=== PATIENT | male | born 1970 | race Caucasian/White ===

== ENCOUNTER 2018-07-27 08:31 | Outpatient (RCR) | payer BC, SELFPAY ==
[2018-07-27] MEDS: Normal Saline Flush 10 ML SYR IVP (07:55)
[2018-07-27 09:18] LABS: Abs Immature Grans 0.01 k/cumm (0.0-0.09); Absolute Basophil Count 0.03 k/cumm (0.0-0.2); Absolute Eosinophil Count 0.08 k/cumm (0.0-0.7); Absolute Monocyte Count 0.69 k/cumm (0.11-0.7); Absolute Neutrophil Count 4.94 k/cumm (1.2-6.7); Basophils % 0.4; Eosinophils % 1.2; HCT 40.1 % (40.0-50.0); HGB 13.1 g/dL (13.5-17.5); Immature Grans % 0.1; Lymphocytes % 16.1; Mean Corp. HGB Concentration 32.7 g/dL (32.0-36.0); Mean Corpuscular Hemoglobin 30.3 pg (27.0-33.0); Mean Corpuscular Volume 92.8 fL (80-95); Mean Platelet Volume 8.9 fL (8.0-11.0); Monocytes % 10.1; Neutrophils % 72.1; Platelet Count 312 x1000/uL (130-400); RBC 4.32 m/cumm (4.50-6.00); RBC Distribution Width 12.2 % (11.8-14.1); White Blood Cell Count 6.85 k/cumm (4.4-10.8)
[2018-07-27 09:46] LABS: ALT 45 U/L (12-78); AST 30 U/L (15-37); Albumin 3.1 g/dL (3.4-5.0); Alkaline Phosphatase 153 U/L (46-116); BUN 8 mg/dL (7-18); Bilirubin, Total 0.1 mg/dL (0.2-1.0); CREATININE 0.71 mg/dL (0.70-1.30); Calcium 8.9 mg/dL (8.5-10.1); Chloride 103 mmol/L (98-107); Glucose 84 mg/dL (70-100); Potassium 4.1 mmol/L (3.5-5.1); Sodium 141 mmol/L (136-145); Total Protein 7.6 g/dL (6.4-8.2)
[2018-07-29 12:45] LABS: CA 19-9 4 U/mL (<35)
== END 2018-08-02 23:59 | disposition home or self-care (01) ==
LOC: INF 08:31
PROVIDERS: Visit Provider Internal Medicine Hematology & Oncology
DX: C25.9 Malignant neoplasm of pancreas, unspecified (principal); C78.7 Secondary malignant neoplasm of liver and intrahepatic bile duct; Z45.2 Encounter for adjustment and management of vascular access device
CPT/HCPCS: 36591; 80053; 85025; 86301

== ENCOUNTER 2018-08-21 02:31 | Outpatient (RCR) | payer BC, SELFPAY ==
[2018-08-07] MEDS: Heparin 500 UNITS/5 ML SYRINGE IV (13:30)
[2018-08-07] MEDS: Normal Saline Flush 10 ML SYR IVP (13:35)
[2018-08-07 14:24] LABS: Absolute Basophil Count 0.02 k/cumm (0.0-0.2); Absolute Eosinophil Count 0.16 k/cumm (0.0-0.7); Absolute Lymphocyte Count 1.34 k/cumm (1.2-3.4); Absolute Monocyte Count 0.46 k/cumm (0.11-0.7); Absolute Neutrophil Count 1.38 k/cumm (1.2-6.7); Basophils % 0.6; Eosinophils % 4.8; HCT 40.4 % (40.0-50.0); HGB 13.5 g/dL (13.5-17.5); Lymphocytes % 39.9; Mean Corp. HGB Concentration 33.4 g/dL (32.0-36.0); Mean Corpuscular Hemoglobin 30.6 pg (27.0-33.0); Mean Corpuscular Volume 91.6 fL (80-95); Mean Platelet Volume 8.6 fL (8.0-11.0); Monocytes % 13.7; Platelet Count 319 x1000/uL (130-400); RBC 4.41 m/cumm (4.50-6.00); RBC Distribution Width 12.7 % (11.8-14.1); White Blood Cell Count 3.36 k/cumm (4.4-10.8)
[2018-08-07 14:40] LABS: ALT 31 U/L (12-78); AST 18 U/L (15-37); Albumin 3.4 g/dL (3.4-5.0); Alkaline Phosphatase 125 U/L (46-116); Anion Gap 7.2 mmol/L (3-11); BUN 16 mg/dL (7-18); Bilirubin, Total 0.2 mg/dL (0.2-1.0); CO2 29.8 mmol/L (21.0-32.0); CREATININE 0.87 mg/dL (0.70-1.30); Calcium 9.2 mg/dL (8.5-10.1); Chloride 101 mmol/L (98-107); Glucose 88 mg/dL (70-100); Sodium 138 mmol/L (136-145); Total Protein 7.6 g/dL (6.4-8.2)
[2018-08-10 11:06] LABS: CEA 120.5 ng/ml
[2018-08-21] MEDS: Heparin 500 UNITS/5 ML SYRINGE IV (10:40)
[2018-08-21] MEDS: Normal Saline Flush 10 ML SYR IVP (10:40)
[2018-08-21 11:04] LABS: Absolute Basophil Count 0.02 k/cumm (0.0-0.2); Absolute Eosinophil Count 0.09 k/cumm (0.0-0.7); Absolute Lymphocyte Count 1.19 k/cumm (1.2-3.4); Absolute Monocyte Count 0.51 k/cumm (0.11-0.7); Absolute Neutrophil Count 1.13 k/cumm (1.2-6.7); Basophils % 0.7; Eosinophils % 3.1; HCT 39.4 % (40.0-50.0); HGB 13.5 g/dL (13.5-17.5); Lymphocytes % 40.5; Mean Corp. HGB Concentration 34.3 g/dL (32.0-36.0); Mean Corpuscular Hemoglobin 31.3 pg (27.0-33.0); Mean Corpuscular Volume 91.4 fL (80-95); Mean Platelet Volume 8.8 fL (8.0-11.0); Monocytes % 17.3; Neutrophils % 38.4; RBC 4.31 m/cumm (4.50-6.00); White Blood Cell Count 2.94 k/cumm (4.4-10.8)
[2018-08-21 11:22] LABS: ALT 33 U/L (12-78); AST 14 U/L (15-37); Albumin 3.5 g/dL (3.4-5.0); Alkaline Phosphatase 85 U/L (46-116); Anion Gap 8.8 mmol/L (3-11); BUN 13 mg/dL (7-18); Bilirubin, Total 0.2 mg/dL (0.2-1.0); CO2 27.2 mmol/L (21.0-32.0); CREATININE 0.88 mg/dL (0.70-1.30); Calcium 8.9 mg/dL (8.5-10.1); Chloride 105 mmol/L (98-107); Glucose 98 mg/dL (70-100); Potassium 4.2 mmol/L (3.5-5.1); Sodium 141 mmol/L (136-145); Total Protein 6.9 g/dL (6.4-8.2)
[2018-08-21 11:37] LABS: Diff Comment Agrees w/ Instrument; Platelet Count 173 x1000/uL (130-400)
[2018-08-21 11:38] LABS: RBC Morphology Normal
[2018-08-24 10:14] LABS: CEA 117.5 ng/ml
== END 2018-09-02 23:59 | disposition home or self-care (01) ==
LOC: INF 02:31
PROVIDERS: Visit Provider Internal Medicine Hematology & Oncology
DX: C18.9 Malignant neoplasm of colon, unspecified (principal); C78.7 Secondary malignant neoplasm of liver and intrahepatic bile duct; Z45.2 Encounter for adjustment and management of vascular access device
CPT/HCPCS: 36591; 80053; 82378; 85025

== ENCOUNTER 2018-09-25 00:51 | Outpatient (RCR) | payer BC, SELFPAY ==
[2018-09-04] MEDS: Normal Saline Flush 10 ML SYR IVP (10:35)
[2018-09-04] MEDS: Heparin 500 UNITS/5 ML SYRINGE IV (10:35)
[2018-09-04 10:49] LABS: Absolute Basophil Count 0.01 k/cumm (0.0-0.2); Absolute Eosinophil Count 0.02 k/cumm (0.0-0.7); Absolute Lymphocyte Count 1.18 k/cumm (1.2-3.4); Absolute Neutrophil Count 0.81 k/cumm (1.2-6.7); Basophils % 0.4; Eosinophils % 0.8; HCT 39.8 % (40.0-50.0); HGB 13.6 g/dL (13.5-17.5); Lymphocytes % 46.8; Mean Corp. HGB Concentration 34.2 g/dL (32.0-36.0); Mean Corpuscular Hemoglobin 31.5 pg (27.0-33.0); Mean Corpuscular Volume 92.1 fL (80-95); Mean Platelet Volume 8.3 fL (8.0-11.0); Monocytes % 19.8; Neutrophils % 32.2; Platelet Count 172 x1000/uL (130-400); RBC 4.32 m/cumm (4.50-6.00); RBC Distribution Width 15.6 % (11.8-14.1); White Blood Cell Count 2.52 k/cumm (4.4-10.8)
[2018-09-04 10:57] LABS: Bilirubin Negative (Negative); Blood Negative (Negative); Clarity Clear; Glucose Negative (Negative); Ketones Negative (Negative); Leukocyte Esterase Negative (Negative); Nitrite Negative (Negative); Specific Gravity >= 1.030 (1.005-1.025); Urobilinogen 0.2 EU/dL (Up TO 0.2); pH 5.5 (5-8)
[2018-09-04 11:02] LABS: ALT 35 U/L (12-78); AST 19 U/L (15-37); Albumin 3.6 g/dL (3.4-5.0); Alkaline Phosphatase 82 U/L (46-116); Anion Gap 8.8 mmol/L (3-11); BUN 12 mg/dL (7-18); Bilirubin, Total 0.3 mg/dL (0.2-1.0); CO2 27.2 mmol/L (21.0-32.0); CREATININE 0.87 mg/dL (0.70-1.30); Chloride 105 mmol/L (98-107); Glucose 85 mg/dL (70-100); Potassium 4.1 mmol/L (3.5-5.1); Sodium 141 mmol/L (136-145); Total Protein 7.1 g/dL (6.4-8.2)
[2018-09-04 12:15] LABS: Bacteria Negative HPF (Negative); Crystals Rare Amorphous HPF (Negative); Epithelial Cells Rare HPF (Negative); Other Cells Few Spermatozoa (Negative); RBC Negative (0-2); WBC 0-2 HPF (0-5)
[2018-09-04 12:16] LABS: C & S Indicated? No; Casts Negative LPF (Negative); Mucus Moderate (Negative)
[2018-09-07 10:11] LABS: CEA 83.8 ng/ml
[2018-09-25] MEDS: Normal Saline Flush 10 ML SYR IVP (08:30)
[2018-09-25] MEDS: Heparin 500 UNITS/5 ML SYRINGE IV (08:30)
[2018-09-25 08:39] LABS: Bilirubin Negative (Negative); Blood Negative (Negative); Clarity Clear; Glucose Negative (Negative); Ketones Negative (Negative); Leukocyte Esterase Negative (Negative); Nitrite Negative (Negative); Urobilinogen 0.2 EU/dL (Up TO 0.2); pH 5.5 (5-8)
[2018-09-25 08:43] LABS: HCT 42.3 % (40.0-50.0); HGB 14.1 g/dL (13.5-17.5); Mean Corp. HGB Concentration 33.3 g/dL (32.0-36.0); Mean Corpuscular Hemoglobin 31.1 pg (27.0-33.0); Mean Corpuscular Volume 93.2 fL (80-95); Mean Platelet Volume 8.9 fL (8.0-11.0); Platelet Count 120 x1000/uL (130-400); RBC 4.54 m/cumm (4.50-6.00); RBC Distribution Width 17.6 % (11.8-14.1); White Blood Cell Count 12.35 k/cumm (4.4-10.8)
[2018-09-25 08:56] LABS: ALT 33 U/L (12-78); AST 18 U/L (15-37); Albumin 3.9 g/dL (3.4-5.0); Alkaline Phosphatase 140 U/L (46-116); BUN 15 mg/dL (7-18); Bilirubin, Total 0.2 mg/dL (0.2-1.0); CREATININE 0.89 mg/dL (0.70-1.30); Calcium 9.5 mg/dL (8.5-10.1); Chloride 104 mmol/L (98-107); Glucose 122 mg/dL (70-100); Potassium 4.4 mmol/L (3.5-5.1); Sodium 139 mmol/L (136-145); Total Protein 7.7 g/dL (6.4-8.2)
[2018-09-25 08:58] LABS: Absolute Eosinophil Count 0.25 k/cumm (0.0-0.7); Absolute Lymphocyte Count 2.96 k/cumm (1.2-3.4); Absolute Monocyte Count 1.24 k/cumm (0.11-0.7); Anisocytosis 2+; Diff Comment Manual Differential
[2018-09-28 10:39] LABS: CEA 41.7 ng/ml
== END 2018-10-02 23:59 | disposition home or self-care (01) ==
LOC: INF 00:51
PROVIDERS: Visit Provider Internal Medicine Hematology & Oncology
DX: C18.9 Malignant neoplasm of colon, unspecified (principal); C78.7 Secondary malignant neoplasm of liver and intrahepatic bile duct; Z45.2 Encounter for adjustment and management of vascular access device
CPT/HCPCS: 36591; 80053; 81003; 81015; 82378; 85025

== ENCOUNTER 2018-10-30 01:28 | Outpatient (RCR) | payer BC, SELFPAY ==
[2018-10-09] MEDS: Normal Saline Flush 10 ML SYR IVP (09:31)
[2018-10-09] MEDS: Heparin 500 UNITS/5 ML SYRINGE IV (09:35)
[2018-10-09 09:50] LABS: Abs Immature Grans 0.28 k/cumm (0.0-0.09); HCT 40.4 % (40.0-50.0); HGB 13.7 g/dL (13.5-17.5); Mean Corp. HGB Concentration 33.9 g/dL (32.0-36.0); Mean Corpuscular Hemoglobin 31.9 pg (27.0-33.0); Mean Corpuscular Volume 94.2 fL (80-95); Mean Platelet Volume 8.8 fL (8.0-11.0); Platelet Count 198 x1000/uL (130-400); RBC 4.29 m/cumm (4.50-6.00); RBC Distribution Width 18.8 % (11.8-14.1); White Blood Cell Count 10.92 k/cumm (4.4-10.8)
[2018-10-09 09:56] LABS: Bilirubin Negative (Negative); Blood Negative (Negative); Clarity Clear; Glucose Negative (Negative); Ketones Negative (Negative); Leukocyte Esterase Negative (Negative); Nitrite Negative (Negative); Specific Gravity <= 1.005 (1.005-1.025); Urobilinogen 0.2 EU/dL (Up TO 0.2); pH 5.5 (5-8)
[2018-10-09 10:03] LABS: ALT 38 U/L (12-78); AST 20 U/L (15-37); Albumin 3.9 g/dL (3.4-5.0); Alkaline Phosphatase 165 U/L (46-116); Anion Gap 11.7 mmol/L (3-11); BUN 15 mg/dL (7-18); Bilirubin, Total 0.3 mg/dL (0.2-1.0); CO2 23.3 mmol/L (21.0-32.0); CREATININE 0.77 mg/dL (0.70-1.30); Calcium 9.3 mg/dL (8.5-10.1); Chloride 104 mmol/L (98-107); Glucose 101 mg/dL (70-100); Potassium 4.1 mmol/L (3.5-5.1); Sodium 139 mmol/L (136-145); Total Protein 7.7 g/dL (6.4-8.2)
[2018-10-09 10:17] LABS: Absolute Eosinophil Count 0.11 k/cumm (0.0-0.7); Absolute Lymphocyte Count 1.64 k/cumm (1.2-3.4); Absolute Monocyte Count 1.09 k/cumm (0.11-0.7); Absolute Neutrophil Count 7.86 k/cumm (1.2-6.7); Anisocytosis 2+; Atypical Lymphocytes % 3; Diff Comment Manual Differential; Polychromasia Present
[2018-10-12 10:22] LABS: CEA 23.9 ng/ml
== END 2018-11-02 23:59 | disposition home or self-care (01) ==
LOC: INF 01:28
PROVIDERS: Visit Provider Internal Medicine Hematology & Oncology
DX: C18.9 Malignant neoplasm of colon, unspecified (principal); C78.7 Secondary malignant neoplasm of liver and intrahepatic bile duct; Z45.2 Encounter for adjustment and management of vascular access device
CPT/HCPCS: 36415; 80053; 96523; 81003; 82378; 85025

== ENCOUNTER 2018-11-30 01:15 | Outpatient (RCR) | payer BC, SELFPAY | END 2018-12-03 23:59 | disposition home or self-care (01) | LOC: INF 01:15 | PROVIDERS: Visit Provider Internal Medicine Hematology & Oncology | DX: R69 Illness, unspecified (principal) ==

== ENCOUNTER 2018-12-21 01:50 | Outpatient (RCR) | payer BC, SELFPAY | END 2018-12-31 23:59 | disposition home or self-care (01) | LOC: INF 01:50 | PROVIDERS: Visit Provider Internal Medicine Hematology & Oncology ==

== ENCOUNTER 2019-01-15 02:04 | Outpatient (RCR) | payer BC, SELFPAY ==
[2019-01-01] MEDS: Normal Saline Flush 10 ML SYR IVP (13:02)
[2019-01-01] MEDS: Heparin 500 UNITS/5 ML SYRINGE IV (13:02)
[2019-01-01 13:13] LABS: Absolute Basophil Count 0.03 k/cumm (0.0-0.2); Absolute Eosinophil Count 0.12 k/cumm (0.0-0.7); Absolute Lymphocyte Count 1.19 k/cumm (1.2-3.4); Absolute Monocyte Count 0.67 k/cumm (0.11-0.7); Absolute Neutrophil Count 2.81 k/cumm (1.2-6.7); Basophils % 0.6; Eosinophils % 2.5; HCT 38.9 % (40.0-50.0); HGB 12.7 g/dL (13.5-17.5); Lymphocytes % 24.7; Mean Corp. HGB Concentration 32.6 g/dL (32.0-36.0); Mean Corpuscular Hemoglobin 32.6 pg (27.0-33.0); Mean Corpuscular Volume 99.7 fL (80-95); Mean Platelet Volume 8.6 fL (8.0-11.0); Monocytes % 13.9; Neutrophils % 58.3; Platelet Count 279 x1000/uL (130-400); RBC Distribution Width 13.1 % (11.8-14.1); White Blood Cell Count 4.82 k/cumm (4.4-10.8)
[2019-01-01 13:36] LABS: ALT 27 U/L (12-78); AST 22 U/L (15-37); Albumin 3.6 g/dL (3.4-5.0); Alkaline Phosphatase 102 U/L (46-116); Anion Gap 7.8 mmol/L (3-11); BUN 13 mg/dL (7-18); Bilirubin, Total 0.3 mg/dL (0.2-1.0); CO2 29.2 mmol/L (21.0-32.0); CREATININE 0.75 mg/dL (0.70-1.30); Calcium 9.4 mg/dL (8.5-10.1); Chloride 101 mmol/L (98-107); Glucose 94 mg/dL (70-100); Potassium 3.8 mmol/L (3.5-5.1); Sodium 138 mmol/L (136-145); Total Protein 8.1 g/dL (6.4-8.2)
[2019-01-15] MEDS: Normal Saline Flush 10 ML SYR IVP (11:33)
[2019-01-15] MEDS: Heparin 500 UNITS/5 ML SYRINGE IV (11:33)
[2019-01-15 11:43] LABS: Abs Immature Grans 0.01 k/cumm (0.0-0.09); Absolute Basophil Count 0.02 k/cumm (0.0-0.2); Absolute Eosinophil Count 0.12 k/cumm (0.0-0.7); Absolute Lymphocyte Count 1.19 k/cumm (1.2-3.4); Absolute Monocyte Count 0.48 k/cumm (0.11-0.7); Absolute Neutrophil Count 1.69 k/cumm (1.2-6.7); Basophils % 0.6; Eosinophils % 3.4; HCT 40.5 % (40.0-50.0); HGB 13.7 g/dL (13.5-17.5); Immature Grans % 0.3; Lymphocytes % 33.9; Mean Corp. HGB Concentration 33.8 g/dL (32.0-36.0); Mean Corpuscular Hemoglobin 33.3 pg (27.0-33.0); Mean Corpuscular Volume 98.5 fL (80-95); Mean Platelet Volume 8.9 fL (8.0-11.0); Monocytes % 13.7; Neutrophils % 48.1; RBC 4.11 m/cumm (4.50-6.00); RBC Distribution Width 13.5 % (11.8-14.1); White Blood Cell Count 3.51 k/cumm (4.4-10.8)
[2019-01-15 11:55] LABS: ALT 26 U/L (12-78); AST 18 U/L (15-37); Albumin 3.8 g/dL (3.4-5.0); Alkaline Phosphatase 79 U/L (46-116); Anion Gap 9.7 mmol/L (3-11); BUN 9 mg/dL (7-18); Bilirubin, Total 0.5 mg/dL (0.2-1.0); CO2 26.3 mmol/L (21.0-32.0); CREATININE 0.86 mg/dL (0.70-1.30); Calcium 9.1 mg/dL (8.5-10.1); Chloride 103 mmol/L (98-107); Glucose 96 mg/dL (70-100); Potassium 3.9 mmol/L (3.5-5.1); Sodium 139 mmol/L (136-145); Total Protein 7.6 g/dL (6.4-8.2)
[2019-01-15 11:56] LABS: Diff Comment PLT Morph Reviewed; Platelet Count 123 x1000/uL (130-400); RBC Morphology Normal
== END 2019-01-31 23:59 | disposition home or self-care (01) ==
LOC: INF 02:04
PROVIDERS: Visit Provider Internal Medicine Hematology & Oncology
DX: C18.9 Malignant neoplasm of colon, unspecified (principal); C78.7 Secondary malignant neoplasm of liver and intrahepatic bile duct; Z45.2 Encounter for adjustment and management of vascular access device
CPT/HCPCS: 36591; 80053; 82378; 85025

== ENCOUNTER 2019-02-19 00:52 | Outpatient (RCR) | payer BC, SELFPAY ==
[2019-02-05] MEDS: Heparin 500 UNITS/5 ML SYRINGE IV (13:25)
[2019-02-05] MEDS: Normal Saline Flush 10 ML SYR IVP (13:25)
[2019-02-05 14:05] LABS: Abs Immature Grans 0.01 k/cumm (0.0-0.09); Absolute Basophil Count 0.02 k/cumm (0.0-0.2); Absolute Eosinophil Count 0.09 k/cumm (0.0-0.7); Absolute Lymphocyte Count 1.15 k/cumm (1.2-3.4); Absolute Monocyte Count 0.44 k/cumm (0.11-0.7); Absolute Neutrophil Count 2.14 k/cumm (1.2-6.7); Basophils % 0.5; Eosinophils % 2.3; HCT 41.8 % (40.0-50.0); HGB 13.8 g/dL (13.5-17.5); Immature Grans % 0.3; Lymphocytes % 29.9; Mean Corpuscular Hemoglobin 31.9 pg (27.0-33.0); Mean Corpuscular Volume 96.8 fL (80-95); Mean Platelet Volume 8.8 fL (8.0-11.0); Monocytes % 11.4; Neutrophils % 55.6; Platelet Count 163 x1000/uL (130-400); RBC 4.32 m/cumm (4.50-6.00); RBC Distribution Width 13.6 % (11.8-14.1); White Blood Cell Count 3.85 k/cumm (4.4-10.8)
[2019-02-05 14:18] LABS: ALT 33 U/L (12-78); AST 20 U/L (15-37); Albumin 3.8 g/dL (3.4-5.0); Alkaline Phosphatase 77 U/L (46-116); Anion Gap 9.7 mmol/L (3-11); BUN 17 mg/dL (7-18); Bilirubin, Total 0.3 mg/dL (0.2-1.0); CO2 27.3 mmol/L (21.0-32.0); CREATININE 1.04 mg/dL (0.70-1.30); Calcium 9.1 mg/dL (8.5-10.1); Chloride 103 mmol/L (98-107); Glucose 111 mg/dL (70-100); Potassium 4.2 mmol/L (3.5-5.1); Sodium 140 mmol/L (136-145); Total Protein 7.6 g/dL (6.4-8.2)
[2019-02-08 09:50] LABS: CEA 7.2 ng/ml
[2019-02-19] MEDS: Heparin 500 UNITS/5 ML SYRINGE IV (08:40)
[2019-02-19 09:09] LABS: Abs Immature Grans 0.01 k/cumm (0.0-0.09); Absolute Basophil Count 0.02 k/cumm (0.0-0.2); Absolute Eosinophil Count 0.14 k/cumm (0.0-0.7); Absolute Lymphocyte Count 1.48 k/cumm (1.2-3.4); Absolute Monocyte Count 0.62 k/cumm (0.11-0.7); Absolute Neutrophil Count 1.86 k/cumm (1.2-6.7); Basophils % 0.5; Eosinophils % 3.4; HCT 43.2 % (40.0-50.0); HGB 14.4 g/dL (13.5-17.5); Immature Grans % 0.2; Lymphocytes % 35.8; Mean Corp. HGB Concentration 33.3 g/dL (32.0-36.0); Mean Corpuscular Hemoglobin 32.4 pg (27.0-33.0); Mean Corpuscular Volume 97.1 fL (80-95); Mean Platelet Volume 8.8 fL (8.0-11.0); Neutrophils % 45.1; Platelet Count 168 x1000/uL (130-400); RBC 4.45 m/cumm (4.50-6.00); RBC Distribution Width 14.4 % (11.8-14.1); White Blood Cell Count 4.13 k/cumm (4.4-10.8)
[2019-02-19 09:22] LABS: ALT 38 U/L (12-78); AST 16 U/L (15-37); Albumin 3.8 g/dL (3.4-5.0); Alkaline Phosphatase 75 U/L (46-116); Anion Gap 9.9 mmol/L (3-11); BUN 16 mg/dL (7-18); Bilirubin, Total 0.3 mg/dL (0.2-1.0); CO2 25.1 mmol/L (21.0-32.0); CREATININE 1.03 mg/dL (0.70-1.30); Calcium 8.9 mg/dL (8.5-10.1); Chloride 103 mmol/L (98-107); Glucose 107 mg/dL (70-100); Potassium 4.2 mmol/L (3.5-5.1); Sodium 138 mmol/L (136-145); Total Protein 7.5 g/dL (6.4-8.2)
[2019-02-19] MEDS: Normal Saline Flush 10 ML SYR IVP (09:45)
[2019-02-22 11:00] LABS: CEA 7.8 ng/ml
== END 2019-03-02 23:59 | disposition home or self-care (01) ==
LOC: INF 00:52
PROVIDERS: Visit Provider Internal Medicine Hematology & Oncology
DX: C18.9 Malignant neoplasm of colon, unspecified (principal); C78.7 Secondary malignant neoplasm of liver and intrahepatic bile duct; Z45.2 Encounter for adjustment and management of vascular access device
CPT/HCPCS: 36415; 36591; 80053; 96523; 82378; 85025

== ENCOUNTER 2019-04-02 01:41 | Outpatient (RCR) | payer BC, SELFPAY ==
[2019-03-05] MEDS: Normal Saline Flush 10 ML SYR IVP (07:45)
[2019-03-05] MEDS: Heparin 500 UNITS/5 ML SYRINGE IV (07:45)
[2019-03-05 08:05] LABS: Absolute Basophil Count 0.03 k/cumm (0.0-0.2); Absolute Eosinophil Count 0.14 k/cumm (0.0-0.7); Absolute Lymphocyte Count 1.27 k/cumm (1.2-3.4); Absolute Monocyte Count 0.55 k/cumm (0.11-0.7); Absolute Neutrophil Count 1.44 k/cumm (1.2-6.7); Basophils % 0.9; Eosinophils % 4.1; HCT 43.2 % (40.0-50.0); HGB 14.4 g/dL (13.5-17.5); Mean Corp. HGB Concentration 33.3 g/dL (32.0-36.0); Mean Corpuscular Hemoglobin 32.3 pg (27.0-33.0); Mean Corpuscular Volume 96.9 fL (80-95); Mean Platelet Volume 8.8 fL (8.0-11.0); Platelet Count 186 x1000/uL (130-400); RBC 4.46 m/cumm (4.50-6.00); White Blood Cell Count 3.43 k/cumm (4.4-10.8)
[2019-03-05 08:17] LABS: ALT 35 U/L (12-78); AST 17 U/L (15-37); Albumin 3.8 g/dL (3.4-5.0); Alkaline Phosphatase 63 U/L (46-116); Anion Gap 8.8 mmol/L (3-11); BUN 14 mg/dL (7-18); Bilirubin, Total 0.3 mg/dL (0.2-1.0); CO2 25.2 mmol/L (21.0-32.0); CREATININE 1.21 mg/dL (0.70-1.30); Calcium 8.9 mg/dL (8.5-10.1); Chloride 102 mmol/L (98-107); Glucose 132 mg/dL (70-100); Potassium 4.2 mmol/L (3.5-5.1); Sodium 136 mmol/L (136-145); Total Protein 7.5 g/dL (6.4-8.2)
[2019-03-08 12:17] LABS: CEA 9.7 ng/ml
[2019-03-19] MEDS: Normal Saline Flush 10 ML SYR IVP (13:28)
[2019-03-19] MEDS: Heparin 500 UNITS/5 ML SYRINGE IV (13:28)
[2019-03-19 13:36] LABS: Abs Immature Grans 0.01 k/cumm (0.0-0.09); Absolute Basophil Count 0.03 k/cumm (0.0-0.2); Absolute Eosinophil Count 0.15 k/cumm (0.0-0.7); Absolute Lymphocyte Count 1.25 k/cumm (1.2-3.4); Absolute Monocyte Count 0.44 k/cumm (0.11-0.7); Absolute Neutrophil Count 1.84 k/cumm (1.2-6.7); Basophils % 0.8; HCT 37.7 % (40.0-50.0); HGB 13.1 g/dL (13.5-17.5); Immature Grans % 0.3; Lymphocytes % 33.6; Mean Corp. HGB Concentration 34.7 g/dL (32.0-36.0); Mean Corpuscular Hemoglobin 33.3 pg (27.0-33.0); Mean Corpuscular Volume 95.9 fL (80-95); Mean Platelet Volume 8.5 fL (8.0-11.0); Monocytes % 11.8; Neutrophils % 49.5; Platelet Count 156 x1000/uL (130-400); RBC 3.93 m/cumm (4.50-6.00); RBC Distribution Width 15.1 % (11.8-14.1); White Blood Cell Count 3.72 k/cumm (4.4-10.8)
[2019-03-19 13:52] LABS: ALT 30 U/L (12-78); AST 15 U/L (15-37); Albumin 3.6 g/dL (3.4-5.0); Alkaline Phosphatase 68 U/L (46-116); Anion Gap 10.3 mmol/L (3-11); BUN 17 mg/dL (7-18); Bilirubin, Total 0.3 mg/dL (0.2-1.0); CO2 24.7 mmol/L (21.0-32.0); CREATININE 1.08 mg/dL (0.70-1.30); Chloride 104 mmol/L (98-107); Glucose 103 mg/dL (70-100); Potassium 4.1 mmol/L (3.5-5.1); Sodium 139 mmol/L (136-145); Total Protein 7.2 g/dL (6.4-8.2)
[2019-03-19 14:00] LABS: Calcium 9.1 mg/dL (8.5-10.1)
[2019-03-22 09:32] LABS: CEA 9.9 ng/ml
[2019-04-02] MEDS: Normal Saline Flush 10 ML SYR IVP (14:18)
[2019-04-02] MEDS: Heparin 500 UNITS/5 ML SYRINGE IV (14:31)
[2019-04-02 14:33] LABS: Abs Immature Grans 0.01 k/cumm (0.0-0.09); Absolute Basophil Count 0.03 k/cumm (0.0-0.2); Absolute Eosinophil Count 0.17 k/cumm (0.0-0.7); Absolute Monocyte Count 0.53 k/cumm (0.11-0.7); Basophils % 0.8; Eosinophils % 4.4; HGB 13.4 g/dL (13.5-17.5); Immature Grans % 0.3; Lymphocytes % 28.6; Mean Corp. HGB Concentration 34.4 g/dL (32.0-36.0); Mean Corpuscular Hemoglobin 33.1 pg (27.0-33.0); Mean Corpuscular Volume 96.3 fL (80-95); Mean Platelet Volume 8.8 fL (8.0-11.0); Monocytes % 13.8; Neutrophils % 52.1; Platelet Count 173 x1000/uL (130-400); RBC 4.05 m/cumm (4.50-6.00); White Blood Cell Count 3.84 k/cumm (4.4-10.8)
[2019-04-02 14:42] LABS: ALT 27 U/L (12-78); AST 14 U/L (15-37); Albumin 3.6 g/dL (3.4-5.0); Alkaline Phosphatase 61 U/L (46-116); Anion Gap 5.7 mmol/L (3-11); BUN 14 mg/dL (7-18); Bilirubin, Total 0.3 mg/dL (0.2-1.0); CO2 27.3 mmol/L (21.0-32.0); CREATININE 0.94 mg/dL (0.70-1.30); Calcium 8.8 mg/dL (8.5-10.1); Chloride 105 mmol/L (98-107); Glucose 105 mg/dL (70-100); Potassium 3.8 mmol/L (3.5-5.1); Sodium 138 mmol/L (136-145)
[2019-04-05 10:13] LABS: CEA 10.5 ng/ml
== END 2019-04-02 23:59 | disposition home or self-care (01) ==
LOC: INF 01:41
PROVIDERS: Visit Provider Internal Medicine Hematology & Oncology
DX: C18.9 Malignant neoplasm of colon, unspecified (principal); C78.7 Secondary malignant neoplasm of liver and intrahepatic bile duct; Z45.2 Encounter for adjustment and management of vascular access device
CPT/HCPCS: 36591; 80053; 82378; 85025

== ENCOUNTER 2019-04-19 02:04 | Outpatient (RCR) | payer BC, SELFPAY ==
[2019-04-19] MEDS: Normal Saline Flush 10 ML SYR IVP (08:59)
[2019-04-19 09:10] LABS: Abs Immature Grans 0.01 k/cumm (0.0-0.09); Absolute Basophil Count 0.03 k/cumm (0.0-0.2); Absolute Eosinophil Count 0.18 k/cumm (0.0-0.7); Absolute Lymphocyte Count 1.02 k/cumm (1.2-3.4); Absolute Monocyte Count 0.43 k/cumm (0.11-0.7); Absolute Neutrophil Count 2.23 k/cumm (1.2-6.7); Basophils % 0.8; Eosinophils % 4.6; HCT 39.9 % (40.0-50.0); HGB 13.8 g/dL (13.5-17.5); Immature Grans % 0.3; Lymphocytes % 26.2; Mean Corp. HGB Concentration 34.6 g/dL (32.0-36.0); Mean Corpuscular Hemoglobin 33.6 pg (27.0-33.0); Mean Corpuscular Volume 97.1 fL (80-95); Mean Platelet Volume 8.6 fL (8.0-11.0); Neutrophils % 57.1; Platelet Count 165 x1000/uL (130-400); RBC 4.11 m/cumm (4.50-6.00); RBC Distribution Width 15.9 % (11.8-14.1)
[2019-04-19 09:30] LABS: ALT 29 U/L (12-78); AST 16 U/L (15-37); Albumin 3.9 g/dL (3.4-5.0); Alkaline Phosphatase 72 U/L (46-116); Anion Gap 9.8 mmol/L (3-11); BUN 16 mg/dL (7-18); Bilirubin, Total 0.4 mg/dL (0.2-1.0); CO2 26.2 mmol/L (21.0-32.0); CREATININE 0.94 mg/dL (0.70-1.30); Calcium 9.5 mg/dL (8.5-10.1); Chloride 105 mmol/L (98-107); Glucose 105 mg/dL (70-100); Potassium 4.2 mmol/L (3.5-5.1); Sodium 141 mmol/L (136-145); Total Protein 7.3 g/dL (6.4-8.2)
[2019-04-20 12:37] LABS: CEA 11.6 ng/ml
== END 2019-05-02 23:59 | disposition home or self-care (01) ==
LOC: INF 02:04
PROVIDERS: Visit Provider Internal Medicine Hematology & Oncology
DX: C18.9 Malignant neoplasm of colon, unspecified (principal); C78.7 Secondary malignant neoplasm of liver and intrahepatic bile duct; Z45.2 Encounter for adjustment and management of vascular access device
CPT/HCPCS: 36591; 80053; 82378; 85025

== ENCOUNTER 2019-05-31 00:59 | Outpatient (RCR) | payer BC, SELFPAY ==
[2019-05-03] MEDS: Normal Saline Flush 10 ML SYR IVP (08:40)
[2019-05-03 08:43] LABS: Absolute Basophil Count 0.02 k/cumm (0.0-0.2); Absolute Eosinophil Count 0.16 k/cumm (0.0-0.7); Absolute Lymphocyte Count 1.21 k/cumm (1.2-3.4); Absolute Monocyte Count 0.53 k/cumm (0.11-0.7); Absolute Neutrophil Count 3.36 k/cumm (1.2-6.7); Basophils % 0.4; HCT 39.9 % (40.0-50.0); HGB 13.8 g/dL (13.5-17.5); Lymphocytes % 22.9; Mean Corp. HGB Concentration 34.6 g/dL (32.0-36.0); Mean Corpuscular Hemoglobin 33.7 pg (27.0-33.0); Mean Corpuscular Volume 97.6 fL (80-95); Mean Platelet Volume 8.5 fL (8.0-11.0); Neutrophils % 63.7; Platelet Count 158 x1000/uL (130-400); RBC 4.09 m/cumm (4.50-6.00); RBC Distribution Width 15.5 % (11.8-14.1); White Blood Cell Count 5.28 k/cumm (4.4-10.8)
[2019-05-03 09:35] LABS: ALT 28 U/L (12-78); AST 17 U/L (15-37); Albumin 3.7 g/dL (3.4-5.0); Alkaline Phosphatase 72 U/L (46-116); Anion Gap 10.9 mmol/L (3-11); BUN 10 mg/dL (7-18); Bilirubin, Total 0.4 mg/dL (0.2-1.0); CO2 26.1 mmol/L (21.0-32.0); CREATININE 0.95 mg/dL (0.70-1.30); Calcium 8.9 mg/dL (8.5-10.1); Chloride 105 mmol/L (98-107); Glucose 98 mg/dL (70-100); Potassium 4.1 mmol/L (3.5-5.1); Sodium 142 mmol/L (136-145); Total Protein 7.2 g/dL (6.4-8.2)
[2019-05-04 09:30] LABS: CEA 13.9 ng/ml
[2019-05-14] MEDS: Normal Saline Flush 10 ML SYR IVP (12:29)
[2019-05-14] MEDS: Heparin 500 UNITS/5 ML SYRINGE IV (12:29)
[2019-05-14 12:56] LABS: Abs Immature Grans 0.02 k/cumm (0.0-0.09); Absolute Basophil Count 0.02 k/cumm (0.0-0.2); Absolute Eosinophil Count 0.16 k/cumm (0.0-0.7); Absolute Lymphocyte Count 1.12 k/cumm (1.2-3.4); Absolute Monocyte Count 0.56 k/cumm (0.11-0.7); Absolute Neutrophil Count 1.79 k/cumm (1.2-6.7); Basophils % 0.5; Eosinophils % 4.4; HCT 38.4 % (40.0-50.0); Immature Grans % 0.5; Lymphocytes % 30.5; Mean Corp. HGB Concentration 33.9 g/dL (32.0-36.0); Mean Corpuscular Hemoglobin 33.6 pg (27.0-33.0); Mean Corpuscular Volume 99.2 fL (80-95); Mean Platelet Volume 8.8 fL (8.0-11.0); Monocytes % 15.3; Neutrophils % 48.8; Platelet Count 205 x1000/uL (130-400); RBC 3.87 m/cumm (4.50-6.00); RBC Distribution Width 15.2 % (11.8-14.1); White Blood Cell Count 3.67 k/cumm (4.4-10.8)
[2019-05-14 13:17] LABS: ALT 30 U/L (12-78); AST 13 U/L (15-37); Albumin 3.9 g/dL (3.4-5.0); Alkaline Phosphatase 66 U/L (46-116); Anion Gap 9.3 mmol/L (3-11); BUN 14 mg/dL (7-18); Bilirubin, Total 0.3 mg/dL (0.2-1.0); CO2 27.7 mmol/L (21.0-32.0); CREATININE 0.82 mg/dL (0.70-1.30); Calcium 9.5 mg/dL (8.5-10.1); Chloride 104 mmol/L (98-107); Glucose 101 mg/dL (70-100); Sodium 141 mmol/L (136-145); Total Protein 7.2 g/dL (6.4-8.2)
[2019-05-17 11:18] LABS: CEA 17.3 ng/ml
[2019-05-31] MEDS: Normal Saline Flush 10 ML SYR IVP (08:25)
[2019-05-31 08:47] LABS: Absolute Basophil Count 0.03 k/cumm (0.0-0.2); Absolute Eosinophil Count 0.21 k/cumm (0.0-0.7); Absolute Lymphocyte Count 1.02 k/cumm (1.2-3.4); Absolute Monocyte Count 0.45 k/cumm (0.11-0.7); Basophils % 0.9; HCT 38.3 % (40.0-50.0); Lymphocytes % 29.1; Mean Corp. HGB Concentration 33.9 g/dL (32.0-36.0); Mean Corpuscular Hemoglobin 33.8 pg (27.0-33.0); Mean Corpuscular Volume 99.5 fL (80-95); Mean Platelet Volume 8.7 fL (8.0-11.0); Monocytes % 12.8; Neutrophils % 51.2; Platelet Count 217 x1000/uL (130-400); RBC 3.85 m/cumm (4.50-6.00); RBC Distribution Width 13.4 % (11.8-14.1); White Blood Cell Count 3.51 k/cumm (4.4-10.8)
[2019-05-31 09:48] LABS: ALT 19 U/L (12-78); Albumin 3.6 g/dL (3.4-5.0); Alkaline Phosphatase 87 U/L (46-116); Anion Gap 9.1 mmol/L (3-11); BUN 15 mg/dL (7-18); Bilirubin, Total 0.2 mg/dL (0.2-1.0); CO2 25.9 mmol/L (21.0-32.0); CREATININE 0.96 mg/dL (0.70-1.30); Calcium 9.4 mg/dL (8.5-10.1); Chloride 106 mmol/L (98-107); Glucose 112 mg/dL (70-100); Sodium 141 mmol/L (136-145); Total Protein 7.5 g/dL (6.4-8.2)
[2019-05-31 09:51] LABS: AST < 5 U/L (15-37)
[2019-06-01 11:09] LABS: CEA 18.9 ng/ml
== END 2019-06-02 23:59 | disposition home or self-care (01) ==
LOC: INF 00:59
PROVIDERS: Visit Provider Internal Medicine Hematology & Oncology
DX: C18.9 Malignant neoplasm of colon, unspecified (principal); C78.7 Secondary malignant neoplasm of liver and intrahepatic bile duct; Z45.2 Encounter for adjustment and management of vascular access device
CPT/HCPCS: 36591; 80053; 82378; 85025

== ENCOUNTER 2019-06-28 01:25 | Outpatient (RCR) | payer BC, SELFPAY ==
[2019-06-14 08:59] LABS: Abs Immature Grans 0.01 k/cumm (0.0-0.09); Absolute Basophil Count 0.02 k/cumm (0.0-0.2); Absolute Eosinophil Count 0.08 k/cumm (0.0-0.7); Absolute Lymphocyte Count 0.86 k/cumm (1.2-3.4); Absolute Monocyte Count 0.52 k/cumm (0.11-0.7); Absolute Neutrophil Count 1.43 k/cumm (1.2-6.7); Basophils % 0.7; Eosinophils % 2.7; HCT 37.5 % (40.0-50.0); HGB 12.6 g/dL (13.5-17.5); Immature Grans % 0.3; Lymphocytes % 29.5; Mean Corp. HGB Concentration 33.6 g/dL (32.0-36.0); Mean Corpuscular Hemoglobin 33.2 pg (27.0-33.0); Mean Corpuscular Volume 98.9 fL (80-95); Mean Platelet Volume 8.8 fL (8.0-11.0); Monocytes % 17.8; RBC 3.79 m/cumm (4.50-6.00); RBC Distribution Width 14.2 % (11.8-14.1); White Blood Cell Count 2.92 k/cumm (4.4-10.8)
[2019-06-14] MEDS: Normal Saline Flush 10 ML SYR IVP (09:07)
[2019-06-14 09:15] LABS: ALT 35 U/L (12-78); AST 20 U/L (15-37); Albumin 3.5 g/dL (3.4-5.0); Alkaline Phosphatase 81 U/L (46-116); Anion Gap 10.3 mmol/L (3-11); BUN 9 mg/dL (7-18); Bilirubin, Total 0.4 mg/dL (0.2-1.0); CO2 25.7 mmol/L (21.0-32.0); CREATININE 0.92 mg/dL (0.70-1.30); Calcium 8.9 mg/dL (8.5-10.1); Chloride 105 mmol/L (98-107); Glucose 101 mg/dL (70-100); Potassium 4.3 mmol/L (3.5-5.1); Sodium 141 mmol/L (136-145); Total Protein 7.2 g/dL (6.4-8.2)
[2019-06-14 09:47] LABS: Diff Comment Diff Reviewed; Macrocytosis 1+; Platelet Count 97 x1000/uL (130-400)
[2019-06-15 09:38] LABS: CEA 22.3 ng/ml
[2019-06-28] MEDS: Normal Saline Flush 10 ML SYR IVP (08:08)
[2019-06-28 08:27] LABS: Abs Immature Grans 0.42 k/cumm (0.0-0.09); Absolute Eosinophil Count 0.08 k/cumm (0.0-0.7); HCT 37.9 % (40.0-50.0); HGB 12.4 g/dL (13.5-17.5); Mean Corp. HGB Concentration 32.7 g/dL (32.0-36.0); Mean Corpuscular Volume 100.8 fL (80-95); RBC 3.76 m/cumm (4.50-6.00); RBC Distribution Width 15.2 % (11.8-14.1); White Blood Cell Count 8.29 k/cumm (4.4-10.8)
[2019-06-28 08:58] LABS: ALT 38 U/L (16-63); AST 31 U/L (15-37); Albumin 3.5 g/dL (3.4-5.0); Alkaline Phosphatase 113 U/L (46-116); BUN 8 mg/dL (7-18); Bilirubin, Total 0.2 mg/dL (0.2-1.0); CREATININE 0.89 mg/dL (0.70-1.30); Calcium 8.9 mg/dL (8.5-10.1); Chloride 106 mmol/L (98-107); Glucose 121 mg/dL (70-100); Sodium 141 mmol/L (136-145); Total Protein 7.4 g/dL (6.4-8.2)
[2019-06-28 08:59] LABS: Absolute Basophil Count 0.08 k/cumm (0.0-0.2); Absolute Lymphocyte Count 1.33 k/cumm (1.2-3.4); Absolute Monocyte Count 0.99 k/cumm (0.11-0.7); Absolute Neutrophil Count 5.55 k/cumm (1.2-6.7)
[2019-06-28 09:01] LABS: Anisocytosis 1+; Diff Comment Manual Differential; Platelet Count 110 x1000/uL (130-400); Polychromasia Present
[2019-06-29 10:22] LABS: CEA 20.4 ng/ml
== END 2019-07-03 23:59 | disposition home or self-care (01) ==
LOC: INF 01:25
PROVIDERS: Visit Provider Internal Medicine Hematology & Oncology
DX: C18.9 Malignant neoplasm of colon, unspecified (principal); C78.7 Secondary malignant neoplasm of liver and intrahepatic bile duct; Z45.2 Encounter for adjustment and management of vascular access device
CPT/HCPCS: 36591; 80053; 82378; 85025

== ENCOUNTER 2019-07-26 00:40 | Outpatient (RCR) | payer BC, SELFPAY ==
[2019-07-09] MEDS: Heparin 500 UNITS/5 ML SYRINGE IV (08:25)
[2019-07-09 08:43] LABS: Abs Immature Grans 0.46 k/cumm (0.0-0.09); HCT 36.8 % (40.0-50.0); HGB 12.3 g/dL (13.5-17.5); Mean Corp. HGB Concentration 33.4 g/dL (32.0-36.0); Mean Corpuscular Hemoglobin 33.5 pg (27.0-33.0); Mean Corpuscular Volume 100.3 fL (80-95); Mean Platelet Volume 8.5 fL (8.0-11.0); Platelet Count 160 x1000/uL (130-400); RBC 3.67 m/cumm (4.50-6.00); RBC Distribution Width 15.4 % (11.8-14.1); White Blood Cell Count 12.06 k/cumm (4.4-10.8)
[2019-07-09] MEDS: Normal Saline Flush 10 ML SYR IVP (08:44)
[2019-07-09 09:00] LABS: ALT 32 U/L (16-63); AST 22 U/L (15-37); Albumin 3.5 g/dL (3.4-5.0); Alkaline Phosphatase 160 U/L (46-116); Anion Gap 8.6 mmol/L (3-11); BUN 11 mg/dL (7-18); Bilirubin, Total 0.2 mg/dL (0.2-1.0); CO2 26.4 mmol/L (21.0-32.0); CREATININE 0.96 mg/dL (0.70-1.30); Calcium 8.9 mg/dL (8.5-10.1); Chloride 106 mmol/L (98-107); Glucose 116 mg/dL (70-100); Sodium 141 mmol/L (136-145); Total Protein 7.7 g/dL (6.4-8.2)
[2019-07-09 09:08] LABS: Absolute Eosinophil Count 0.12 k/cumm (0.0-0.7); Absolute Lymphocyte Count 2.05 k/cumm (1.2-3.4); Absolute Monocyte Count 0.96 k/cumm (0.11-0.7); Absolute Neutrophil Count 8.92 k/cumm (1.2-6.7); Atypical Lymphocytes % 3
[2019-07-09 09:09] LABS: Diff Comment Manual Differential; Nucleated RBC 3 /100WBC; Promyelocytes % 0 %; RBC Morphology Normal
[2019-07-12 10:47] LABS: CEA 17.7 ng/ml
[2019-07-26] MEDS: Normal Saline Flush 10 ML SYR IVP (08:10)
[2019-07-26 08:48] LABS: HCT 37.2 % (40.0-50.0); HGB 12.2 g/dL (13.5-17.5); Mean Corp. HGB Concentration 32.8 g/dL (32.0-36.0); Mean Corpuscular Hemoglobin 32.8 pg (27.0-33.0); Mean Platelet Volume 8.9 fL (8.0-11.0); Platelet Count 216 x1000/uL (130-400); RBC 3.72 m/cumm (4.50-6.00); RBC Distribution Width 15.1 % (11.8-14.1); White Blood Cell Count 13.43 k/cumm (4.4-10.8)
[2019-07-26 08:53] LABS: ALT 26 U/L (16-63); AST 16 U/L (15-37); Albumin 3.5 g/dL (3.4-5.0); Alkaline Phosphatase 156 U/L (46-116); BUN 11 mg/dL (7-18); Bilirubin, Total 0.3 mg/dL (0.2-1.0); CREATININE 0.93 mg/dL (0.70-1.30); Calcium 9.1 mg/dL (8.5-10.1); Chloride 105 mmol/L (98-107); Glucose 119 mg/dL (70-100); Potassium 3.9 mmol/L (3.5-5.1); Sodium 139 mmol/L (136-145); Total Protein 7.8 g/dL (6.4-8.2)
[2019-07-26 09:13] LABS: Absolute Eosinophil Count 0.54 k/cumm (0.0-0.7); Absolute Lymphocyte Count 0.94 k/cumm (1.2-3.4); Absolute Monocyte Count 0.81 k/cumm (0.11-0.7); Absolute Neutrophil Count 11.01 k/cumm (1.2-6.7); Anisocytosis 1+; Atypical Lymphocytes % 0; Basophilic Stippling Present; Diff Comment Manual Differential
[2019-07-26 09:14] LABS: Macrocytosis 2+; Polychromasia Present
[2019-07-27 10:15] LABS: CEA 15.9 ng/ml
== END 2019-08-02 23:59 | disposition home or self-care (01) ==
LOC: INF 00:40
PROVIDERS: Visit Provider Internal Medicine Hematology & Oncology
DX: C18.9 Malignant neoplasm of colon, unspecified (principal); C78.7 Secondary malignant neoplasm of liver and intrahepatic bile duct; Z45.2 Encounter for adjustment and management of vascular access device
CPT/HCPCS: 36415; 36591; 80053; 96523; 82378; 85025

== ENCOUNTER 2019-08-23 01:54 | Outpatient (RCR) | payer BC, SELFPAY ==
[2019-08-09] MEDS: Normal Saline Flush 10 ML SYR IVP (09:47)
[2019-08-09 09:48] LABS: Abs Immature Grans 0.12 k/cumm (0.0-0.09); Absolute Basophil Count 0.03 k/cumm (0.0-0.2); Absolute Lymphocyte Count 1.34 k/cumm (1.2-3.4); Absolute Monocyte Count 0.79 k/cumm (0.11-0.7); Absolute Neutrophil Count 6.63 k/cumm (1.2-6.7); Basophils % 0.3; Eosinophils % 2.2; HCT 38.9 % (40.0-50.0); HGB 12.8 g/dL (13.5-17.5); Immature Grans % 1.3; Lymphocytes % 14.7; Mean Corp. HGB Concentration 32.9 g/dL (32.0-36.0); Mean Corpuscular Hemoglobin 33.4 pg (27.0-33.0); Mean Corpuscular Volume 101.6 fL (80-95); Mean Platelet Volume 8.7 fL (8.0-11.0); Monocytes % 8.7; Neutrophils % 72.8; Platelet Count 168 x1000/uL (130-400); RBC 3.83 m/cumm (4.50-6.00); RBC Distribution Width 15.3 % (11.8-14.1); White Blood Cell Count 9.11 k/cumm (4.4-10.8)
[2019-08-09 10:10] LABS: ALT 28 U/L (16-63); AST 19 U/L (15-37); Albumin 3.8 g/dL (3.4-5.0); Alkaline Phosphatase 150 U/L (46-116); Anion Gap 7.9 mmol/L (3-11); BUN 9 mg/dL (7-18); Bilirubin, Total 0.4 mg/dL (0.2-1.0); CO2 27.1 mmol/L (21.0-32.0); CREATININE 0.87 mg/dL (0.70-1.30); Chloride 104 mmol/L (98-107); Glucose 106 mg/dL (70-100); Potassium 4.1 mmol/L (3.5-5.1); Sodium 139 mmol/L (136-145); Total Protein 7.8 g/dL (6.4-8.2)
[2019-08-10 10:46] LABS: CEA 23.4 ng/ml
[2019-08-23] MEDS: Normal Saline Flush 10 ML SYR IVP (09:35)
[2019-08-23 09:45] LABS: Absolute Basophil Count 0.03 k/cumm (0.0-0.2); Absolute Eosinophil Count 0.16 k/cumm (0.0-0.7); Absolute Monocyte Count 0.75 k/cumm (0.11-0.7); Absolute Neutrophil Count 10.03 k/cumm (1.2-6.7); Basophils % 0.2; Eosinophils % 1.3; HCT 38.1 % (40.0-50.0); HGB 12.6 g/dL (13.5-17.5); Immature Grans % 1.6; Lymphocytes % 11.6; Mean Corp. HGB Concentration 33.1 g/dL (32.0-36.0); Mean Corpuscular Hemoglobin 33.5 pg (27.0-33.0); Mean Corpuscular Volume 101.3 fL (80-95); Mean Platelet Volume 8.7 fL (8.0-11.0); Monocytes % 5.9; Neutrophils % 79.4; Platelet Count 169 x1000/uL (130-400); RBC 3.76 m/cumm (4.50-6.00); RBC Distribution Width 15.1 % (11.8-14.1); White Blood Cell Count 12.63 k/cumm (4.4-10.8)
[2019-08-23 09:48] LABS: Absolute Lymphocyte Count 1.47 k/cumm (1.2-3.4)
[2019-08-23 10:07] LABS: ALT 32 U/L (16-63); AST 24 U/L (15-37); Albumin 3.6 g/dL (3.4-5.0); Alkaline Phosphatase 152 U/L (46-116); Anion Gap 10.5 mmol/L (3-11); BUN 10 mg/dL (7-18); Bilirubin, Total 0.4 mg/dL (0.2-1.0); CO2 27.5 mmol/L (21.0-32.0); CREATININE 0.97 mg/dL (0.70-1.30); Calcium 8.9 mg/dL (8.5-10.1); Chloride 104 mmol/L (98-107); Glucose 116 mg/dL (70-100); Potassium 3.6 mmol/L (3.5-5.1); Sodium 142 mmol/L (136-145); Total Protein 7.3 g/dL (6.4-8.2)
[2019-08-24 12:34] LABS: CEA 26.5 ng/ml
== END 2019-09-02 23:59 | disposition home or self-care (01) ==
LOC: INF 01:54
PROVIDERS: Visit Provider Nurse Practitioner Adult Health
DX: C18.9 Malignant neoplasm of colon, unspecified (principal); C78.7 Secondary malignant neoplasm of liver and intrahepatic bile duct; Z45.2 Encounter for adjustment and management of vascular access device
CPT/HCPCS: 36591; 80053; 82378; 85025

== ENCOUNTER 2019-10-01 02:52 | Outpatient (RCR) | payer BC, SELFPAY ==
[2019-09-03] MEDS: Normal Saline Flush 10 ML SYR IVP (14:00)
[2019-09-03] MEDS: Heparin 500 UNITS/5 ML SYRINGE IV (14:00)
[2019-09-03 14:18] LABS: Abs Immature Grans 0.42 k/cumm (0.0-0.09); HCT 37.7 % (40.0-50.0); HGB 12.5 g/dL (13.5-17.5); Mean Corp. HGB Concentration 33.2 g/dL (32.0-36.0); Mean Corpuscular Volume 102.4 fL (80-95); Mean Platelet Volume 8.4 fL (8.0-11.0); Platelet Count 221 x1000/uL (130-400); RBC 3.68 m/cumm (4.50-6.00); White Blood Cell Count 14.53 k/cumm (4.4-10.8)
[2019-09-03 14:27] LABS: ALT 38 U/L (16-63); AST 18 U/L (15-37); Albumin 3.8 g/dL (3.4-5.0); Alkaline Phosphatase 166 U/L (46-116); Anion Gap 8.8 mmol/L (3-11); BUN 9 mg/dL (7-18); Bilirubin, Total 0.3 mg/dL (0.2-1.0); CO2 27.2 mmol/L (21.0-32.0); CREATININE 0.95 mg/dL (0.70-1.30); Calcium 8.8 mg/dL (8.5-10.1); Chloride 106 mmol/L (98-107); Glucose 95 mg/dL (70-100); Potassium 3.7 mmol/L (3.5-5.1); Sodium 142 mmol/L (136-145); Total Protein 7.3 g/dL (6.4-8.2)
[2019-09-03 14:36] LABS: Absolute Lymphocyte Count 1.45 k/cumm (1.2-3.4); Absolute Monocyte Count 0.73 k/cumm (0.11-0.7); Absolute Neutrophil Count 11.62 k/cumm (1.2-6.7); Atypical Lymphocytes % 2
[2019-09-03 14:37] LABS: Absolute Eosinophil Count 0.29 k/cumm (0.0-0.7); Diff Comment Manual Differential; Polychromasia Present
[2019-09-06 11:08] LABS: CEA 29.9 ng/ml
[2019-09-17] MEDS: Normal Saline Flush 10 ML SYR IVP (13:32)
[2019-09-17] MEDS: Heparin 500 UNITS/5 ML SYRINGE IV (13:32)
[2019-09-17 13:36] LABS: Abs Immature Grans 0.15 k/cumm (0.0-0.09); Absolute Eosinophil Count 0.16 k/cumm (0.0-0.7); Absolute Monocyte Count 1.12 k/cumm (0.11-0.7); Absolute Neutrophil Count 9.45 k/cumm (1.2-6.7); Basophils % 0.2; Eosinophils % 1.3; HCT 38.3 % (40.0-50.0); HGB 12.5 g/dL (13.5-17.5); Immature Grans % 1.2; Lymphocytes % 12.2; Mean Corp. HGB Concentration 32.6 g/dL (32.0-36.0); Mean Corpuscular Volume 101.1 fL (80-95); Mean Platelet Volume 8.3 fL (8.0-11.0); Neutrophils % 76.1; Platelet Count 277 x1000/uL (130-400); RBC 3.79 m/cumm (4.50-6.00); RBC Distribution Width 14.1 % (11.8-14.1); White Blood Cell Count 12.42 k/cumm (4.4-10.8)
[2019-09-17 13:51] LABS: Absolute Basophil Count 0.02 k/cumm (0.0-0.2); Absolute Lymphocyte Count 1.52 k/cumm (1.2-3.4)
[2019-09-17 14:02] LABS: ALT 25 U/L (16-63); AST 13 U/L (15-37); Albumin 3.6 g/dL (3.4-5.0); Alkaline Phosphatase 174 U/L (46-116); Anion Gap 7.9 mmol/L (3-11); BUN 8 mg/dL (7-18); Bilirubin, Total 0.2 mg/dL (0.2-1.0); CO2 28.1 mmol/L (21.0-32.0); CREATININE 0.95 mg/dL (0.70-1.30); Calcium 8.8 mg/dL (8.5-10.1); Chloride 105 mmol/L (98-107); Glucose 118 mg/dL (70-100); Potassium 3.5 mmol/L (3.5-5.1); Sodium 141 mmol/L (136-145); Total Protein 7.4 g/dL (6.4-8.2)
[2019-09-21 08:46] LABS: Magnesium 2.1 mg/dL (1.8-2.4)
[2019-09-21 16:03] LABS: CEA 30.1 ng/mL (See Note)
[2019-10-01] MEDS: Normal Saline Flush 10 ML SYR IVP (07:00)
[2019-10-01] MEDS: Heparin 500 UNITS/5 ML SYRINGE IV (07:00)
[2019-10-01 07:29] LABS: Absolute Basophil Count 0.02 k/cumm (0.0-0.2); Absolute Lymphocyte Count 0.83 k/cumm (1.2-3.4); Absolute Monocyte Count 0.42 k/cumm (0.11-0.7); Absolute Neutrophil Count 1.93 k/cumm (1.2-6.7); Basophils % 0.6; HCT 39.4 % (40.0-50.0); HGB 13.2 g/dL (13.5-17.5); Lymphocytes % 25.2; Mean Corp. HGB Concentration 33.5 g/dL (32.0-36.0); Mean Corpuscular Hemoglobin 33.4 pg (27.0-33.0); Mean Corpuscular Volume 99.7 fL (80-95); Mean Platelet Volume 8.5 fL (8.0-11.0); Monocytes % 12.7; Neutrophils % 58.5; Platelet Count 253 x1000/uL (130-400); RBC 3.95 m/cumm (4.50-6.00); RBC Distribution Width 13.7 % (11.8-14.1)
[2019-10-01 07:40] LABS: ALT 44 U/L (16-63); AST 21 U/L (15-37); Albumin 3.8 g/dL (3.4-5.0); Alkaline Phosphatase 101 U/L (46-116); Anion Gap 10.3 mmol/L (3-11); BUN 13 mg/dL (7-18); Bilirubin, Total 0.4 mg/dL (0.2-1.0); CO2 25.7 mmol/L (21.0-32.0); Chloride 104 mmol/L (98-107); Glucose 135 mg/dL (74-106); Magnesium 1.9 mg/dL (1.8-2.4); Potassium 3.4 mmol/L (3.5-5.1); Sodium 140 mmol/L (136-145); Total Protein 7.4 g/dL (6.4-8.2)
[2019-10-04 10:18] LABS: CEA 35.3 ng/mL (See Note)
== END 2019-10-02 23:59 | disposition home or self-care (01) ==
LOC: INF 02:52
PROVIDERS: Visit Provider Internal Medicine Hematology & Oncology
DX: C18.9 Malignant neoplasm of colon, unspecified (principal); C77.1 Secondary and unspecified malignant neoplasm of intrathoracic lymph nodes; Z45.2 Encounter for adjustment and management of vascular access device
CPT/HCPCS: 36591; 80053; 82378; 83735; 85025

== ENCOUNTER 2019-10-29 04:50 | Outpatient (RCR) | payer BC, SELFPAY ==
[2019-10-15] MEDS: Normal Saline Flush 10 ML SYR IVP (08:09)
[2019-10-15 08:18] LABS: Absolute Basophil Count 0.03 k/cumm (0.0-0.2); Absolute Eosinophil Count 0.16 k/cumm (0.0-0.7); Absolute Lymphocyte Count 0.98 k/cumm (1.2-3.4); Absolute Monocyte Count 0.51 k/cumm (0.11-0.7); Absolute Neutrophil Count 2.05 k/cumm (1.2-6.7); Basophils % 0.8; Eosinophils % 4.3; HCT 39.8 % (40.0-50.0); HGB 13.4 g/dL (13.5-17.5); Lymphocytes % 26.3; Mean Corp. HGB Concentration 33.7 g/dL (32.0-36.0); Mean Corpuscular Hemoglobin 33.2 pg (27.0-33.0); Mean Corpuscular Volume 98.5 fL (80-95); Mean Platelet Volume 8.8 fL (8.0-11.0); Monocytes % 13.7; Neutrophils % 54.9; Platelet Count 206 x1000/uL (130-400); RBC 4.04 m/cumm (4.50-6.00); RBC Distribution Width 13.3 % (11.8-14.1); White Blood Cell Count 3.73 k/cumm (4.4-10.8)
[2019-10-15 08:28] LABS: ALT 37 U/L (16-63); AST 19 U/L (15-37); Albumin 3.6 g/dL (3.4-5.0); Alkaline Phosphatase 88 U/L (46-116); Anion Gap 9.3 mmol/L (3-11); BUN 12 mg/dL (7-18); Bilirubin, Total 0.3 mg/dL (0.2-1.0); CO2 24.7 mmol/L (21.0-32.0); CREATININE 0.79 mg/dL (0.70-1.30); Calcium 8.7 mg/dL (8.5-10.1); Chloride 108 mmol/L (98-107); Glucose 94 mg/dL (74-106); Magnesium 1.8 mg/dL (1.8-2.4); Sodium 142 mmol/L (136-145)
[2019-10-18 10:26] LABS: CEA 33.6 ng/mL (See Note)
[2019-10-29] MEDS: Normal Saline Flush 10 ML SYR IVP (09:14)
[2019-10-29 09:15] LABS: Absolute Basophil Count 0.03 k/cumm (0.0-0.2); Absolute Eosinophil Count 0.17 k/cumm (0.0-0.7); Absolute Monocyte Count 0.43 k/cumm (0.11-0.7); Absolute Neutrophil Count 3.61 k/cumm (1.2-6.7); Basophils % 0.6; Eosinophils % 3.3; HCT 41.4 % (40.0-50.0); HGB 14.1 g/dL (13.5-17.5); Lymphocytes % 17.5; Mean Corp. HGB Concentration 34.1 g/dL (32.0-36.0); Mean Corpuscular Hemoglobin 33.2 pg (27.0-33.0); Mean Corpuscular Volume 97.4 fL (80-95); Mean Platelet Volume 8.9 fL (8.0-11.0); Monocytes % 8.4; Neutrophils % 70.2; Platelet Count 179 x1000/uL (130-400); RBC 4.25 m/cumm (4.50-6.00); RBC Distribution Width 12.9 % (11.8-14.1); White Blood Cell Count 5.14 k/cumm (4.4-10.8)
[2019-10-29 09:30] LABS: ALT 50 U/L (16-63); AST 22 U/L (15-37); Albumin 3.8 g/dL (3.4-5.0); Alkaline Phosphatase 92 U/L (46-116); BUN 7 mg/dL (7-18); Bilirubin, Total 0.4 mg/dL (0.2-1.0); CREATININE 0.81 mg/dL (0.70-1.30); Calcium 8.9 mg/dL (8.5-10.1); Chloride 105 mmol/L (98-107); Glucose 120 mg/dL (74-106); Magnesium 1.7 mg/dL (1.8-2.4); Potassium 3.9 mmol/L (3.5-5.1); Sodium 140 mmol/L (136-145); Total Protein 7.2 g/dL (6.4-8.2)
[2019-11-01 11:22] LABS: CEA 17.2 ng/mL (See Note)
== END 2019-11-02 23:59 | disposition home or self-care (01) ==
LOC: INF 04:50
PROVIDERS: Visit Provider Internal Medicine Hematology & Oncology
DX: C18.9 Malignant neoplasm of colon, unspecified (principal); C77.1 Secondary and unspecified malignant neoplasm of intrathoracic lymph nodes; Z45.2 Encounter for adjustment and management of vascular access device
CPT/HCPCS: 36591; 80053; 82378; 83735; 85025

== ENCOUNTER 2019-11-26 07:30 | Outpatient (RCR) | payer BC, SELFPAY ==
[2019-11-12] MEDS: Normal Saline Flush 10 ML SYR IVP (07:55)
[2019-11-12 08:18] LABS: Absolute Basophil Count 0.02 k/cumm (0.0-0.2); Absolute Lymphocyte Count 1.12 k/cumm (1.2-3.4); Absolute Monocyte Count 0.46 k/cumm (0.11-0.7); Absolute Neutrophil Count 1.39 k/cumm (1.2-6.7); Basophils % 0.6; Eosinophils % 3.2; HCT 43.5 % (40.0-50.0); HGB 14.5 g/dL (13.5-17.5); Lymphocytes % 36.2; Mean Corp. HGB Concentration 33.3 g/dL (32.0-36.0); Mean Corpuscular Hemoglobin 31.9 pg (27.0-33.0); Mean Corpuscular Volume 95.6 fL (80-95); Mean Platelet Volume 8.9 fL (8.0-11.0); Monocytes % 14.9; Neutrophils % 45.1; Platelet Count 287 x1000/uL (130-400); RBC 4.55 m/cumm (4.50-6.00); RBC Distribution Width 12.5 % (11.8-14.1); White Blood Cell Count 3.09 k/cumm (4.4-10.8)
[2019-11-12 08:32] LABS: ALT 42 U/L (16-63); AST 21 U/L (15-37); Albumin 3.7 g/dL (3.4-5.0); Alkaline Phosphatase 93 U/L (46-116); Anion Gap 9.4 mmol/L (3-11); BUN 10 mg/dL (7-18); Bilirubin, Total 0.4 mg/dL (0.2-1.0); CO2 27.6 mmol/L (21.0-32.0); Calcium 9.4 mg/dL (8.5-10.1); Chloride 104 mmol/L (98-107); Glucose 110 mg/dL (74-106); Potassium 4.1 mmol/L (3.5-5.1); Sodium 141 mmol/L (136-145); Total Protein 7.3 g/dL (6.4-8.2)
[2019-11-15 10:41] LABS: CEA 8.8 ng/mL (See Note)
[2019-11-26 07:55] LABS: Abs Immature Grans 0.01 k/cumm (0.0-0.09); Absolute Basophil Count 0.02 k/cumm (0.0-0.2); Absolute Eosinophil Count 0.11 k/cumm (0.0-0.7); Absolute Lymphocyte Count 1.11 k/cumm (1.2-3.4); Absolute Monocyte Count 0.44 k/cumm (0.11-0.7); Basophils % 0.6; Eosinophils % 3.6; HCT 42.5 % (40.0-50.0); HGB 14.3 g/dL (13.5-17.5); Immature Grans % 0.3 %; Lymphocytes % 35.9; Mean Corp. HGB Concentration 33.6 g/dL (32.0-36.0); Mean Corpuscular Hemoglobin 31.7 pg (27.0-33.0); Mean Corpuscular Volume 94.2 fL (80-95); Monocytes % 14.2; Neutrophils % 45.4; Platelet Count 221 x1000/uL (130-400); RBC 4.51 m/cumm (4.50-6.00); RBC Distribution Width 12.9 % (11.8-14.1); White Blood Cell Count 3.09 k/cumm (4.4-10.8)
[2019-11-26 08:00] LABS: ALT 45 U/L (16-63); AST 22 U/L (15-37); Albumin 3.6 g/dL (3.4-5.0); Alkaline Phosphatase 98 U/L (46-116); Anion Gap 8.3 mmol/L (3-11); BUN 8 mg/dL (7-18); Bilirubin, Total 0.4 mg/dL (0.2-1.0); CO2 27.7 mmol/L (21.0-32.0); CREATININE 0.85 mg/dL (0.70-1.30); Chloride 104 mmol/L (98-107); Glucose 143 mg/dL (74-106); Magnesium 1.7 mg/dL (1.8-2.4); Potassium 3.8 mmol/L (3.5-5.1); Sodium 140 mmol/L (136-145); Total Protein 7.2 g/dL (6.4-8.2)
[2019-11-26] MEDS: Normal Saline Flush 10 ML SYR IVP (08:07)
[2019-11-29 11:05] LABS: CEA 11.6 ng/mL (See Note)
== END 2019-12-03 23:59 | disposition home or self-care (01) ==
LOC: INF 07:30
PROVIDERS: Nurse Practitioner Family; Visit Provider Nurse Practitioner Adult Health
DX: C18.9 Malignant neoplasm of colon, unspecified (principal); C78.7 Secondary malignant neoplasm of liver and intrahepatic bile duct; Z45.2 Encounter for adjustment and management of vascular access device
CPT/HCPCS: 36591; 80053; 82378; 83735; 85025

== ENCOUNTER 2019-12-24 02:54 | Outpatient (RCR) | payer BC, SELFPAY ==
[2019-12-10 09:38] LABS: Absolute Basophil Count 0.03 k/cumm (0.0-0.2); Absolute Eosinophil Count 0.11 k/cumm (0.0-0.7); Absolute Lymphocyte Count 1.25 k/cumm (1.2-3.4); Absolute Monocyte Count 0.39 k/cumm (0.11-0.7); Absolute Neutrophil Count 1.24 k/cumm (1.2-6.7); Eosinophils % 3.6; HCT 44.4 % (40.0-50.0); HGB 15.1 g/dL (13.5-17.5); Lymphocytes % 41.4; Mean Corpuscular Hemoglobin 31.7 pg (27.0-33.0); Mean Corpuscular Volume 93.1 fL (80-95); Monocytes % 12.9; Neutrophils % 41.1; Platelet Count 231 x1000/uL (130-400); RBC 4.77 m/cumm (4.50-6.00); RBC Distribution Width 13.3 % (11.8-14.1); White Blood Cell Count 3.02 k/cumm (4.4-10.8)
[2019-12-10 09:55] LABS: ALT 47 U/L (16-63); AST 25 U/L (15-37); Albumin 3.9 g/dL (3.4-5.0); Alkaline Phosphatase 91 U/L (46-116); BUN 9 mg/dL (7-18); Bilirubin, Total 0.4 mg/dL (0.2-1.0); CREATININE 0.79 mg/dL (0.70-1.30); Calcium 8.9 mg/dL (8.5-10.1); Chloride 105 mmol/L (98-107); Glucose 85 mg/dL (74-106); Potassium 4.1 mmol/L (3.5-5.1); Sodium 141 mmol/L (136-145); Total Protein 7.3 g/dL (6.4-8.2)
[2019-12-10] MEDS: Normal Saline Flush 10 ML SYR IVP (11:13)
[2019-12-13 09:58] LABS: CEA 11.4 ng/mL (See Note)
[2019-12-24 10:29] LABS: Absolute Basophil Count 0.04 k/cumm (0.0-0.2); Absolute Eosinophil Count 0.16 k/cumm (0.0-0.7); Absolute Monocyte Count 0.38 k/cumm (0.11-0.7); Absolute Neutrophil Count 1.33 k/cumm (1.2-6.7); Basophils % 1.2; Eosinophils % 4.8; HCT 44.6 % (40.0-50.0); HGB 15.2 g/dL (13.5-17.5); Lymphocytes % 42.3; Mean Corp. HGB Concentration 34.1 g/dL (32.0-36.0); Mean Corpuscular Hemoglobin 31.9 pg (27.0-33.0); Mean Corpuscular Volume 93.5 fL (80-95); Mean Platelet Volume 8.8 fL (8.0-11.0); Monocytes % 11.5; Neutrophils % 40.2; Platelet Count 242 x1000/uL (130-400); RBC 4.77 m/cumm (4.50-6.00); RBC Distribution Width 13.7 % (11.8-14.1); White Blood Cell Count 3.31 k/cumm (4.4-10.8)
[2019-12-24] MEDS: Normal Saline Flush 10 ML SYR IVP (10:31)
[2019-12-24 10:44] LABS: ALT 44 U/L (16-63); AST 23 U/L (15-37); Albumin 3.7 g/dL (3.4-5.0); Alkaline Phosphatase 105 U/L (46-116); BUN 7 mg/dL (7-18); Bilirubin, Total 0.4 mg/dL (0.2-1.0); CREATININE 0.77 mg/dL (0.70-1.30); Calcium 8.7 mg/dL (8.5-10.1); Chloride 105 mmol/L (98-107); Glucose 97 mg/dL (74-106); Magnesium 2.1 mg/dL (1.8-2.4); Potassium 4.2 mmol/L (3.5-5.1); Sodium 141 mmol/L (136-145); Total Protein 7.2 g/dL (6.4-8.2)
[2019-12-27 10:41] LABS: CEA 8.9 ng/mL (See Note)
== END 2020-01-01 23:59 | disposition home or self-care (01) ==
LOC: INF 02:54
PROVIDERS: Internal Medicine Hematology & Oncology; Visit Provider Nurse Practitioner Adult Health
DX: C18.9 Malignant neoplasm of colon, unspecified (principal); C78.7 Secondary malignant neoplasm of liver and intrahepatic bile duct; Z45.2 Encounter for adjustment and management of vascular access device
CPT/HCPCS: 36591; 80053; 82378; 83735; 85025

== ENCOUNTER 2020-01-21 02:34 | Outpatient (RCR) | payer BC, SELFPAY ==
[2020-01-07] MEDS: Normal Saline Flush 10 ML SYR IVP (09:48)
[2020-01-07 09:57] LABS: Abs Immature Grans 0.01 k/cumm (0.0-0.09); Absolute Basophil Count 0.02 k/cumm (0.0-0.2); Absolute Eosinophil Count 0.11 k/cumm (0.0-0.7); Absolute Monocyte Count 0.52 k/cumm (0.11-0.7); Absolute Neutrophil Count 2.48 k/cumm (1.2-6.7); Basophils % 0.4; Eosinophils % 2.4; HCT 45.3 % (40.0-50.0); HGB 15.4 g/dL (13.5-17.5); Immature Grans % 0.2 %; Lymphocytes % 30.8; Mean Corpuscular Hemoglobin 31.6 pg (27.0-33.0); Mean Corpuscular Volume 92.8 fL (80-95); Mean Platelet Volume 8.7 fL (8.0-11.0); Monocytes % 11.5; Neutrophils % 54.7; Platelet Count 247 x1000/uL (130-400); RBC 4.88 m/cumm (4.50-6.00); RBC Distribution Width 13.9 % (11.8-14.1); White Blood Cell Count 4.54 k/cumm (4.4-10.8)
[2020-01-07 10:12] LABS: ALT 37 U/L (16-63); AST 21 U/L (15-37); Albumin 3.7 g/dL (3.4-5.0); Alkaline Phosphatase 115 U/L (46-116); Anion Gap 8.7 mmol/L (3-11); BUN 8 mg/dL (7-18); Bilirubin, Total 0.4 mg/dL (0.2-1.0); CO2 27.3 mmol/L (21.0-32.0); CREATININE 0.86 mg/dL (0.70-1.30); Calcium 8.3 mg/dL (8.5-10.1); Chloride 104 mmol/L (98-107); Glucose 116 mg/dL (74-106); Sodium 140 mmol/L (136-145); Total Protein 7.5 g/dL (6.4-8.2)
[2020-01-10 11:21] LABS: CEA 10.6 ng/mL (See Note)
[2020-01-21] MEDS: Normal Saline Flush 10 ML SYR IVP (10:06)
[2020-01-21 10:23] LABS: Absolute Basophil Count 0.01 k/cumm (0.0-0.2); Absolute Eosinophil Count 0.11 k/cumm (0.0-0.7); Absolute Lymphocyte Count 1.44 k/cumm (1.2-3.4); Absolute Monocyte Count 0.57 k/cumm (0.11-0.7); Absolute Neutrophil Count 3.71 k/cumm (1.2-6.7); Basophils % 0.2; Eosinophils % 1.9; HCT 43.4 % (40.0-50.0); HGB 14.6 g/dL (13.5-17.5); Lymphocytes % 24.7; Mean Corp. HGB Concentration 33.6 g/dL (32.0-36.0); Mean Corpuscular Hemoglobin 31.3 pg (27.0-33.0); Mean Corpuscular Volume 93.1 fL (80-95); Mean Platelet Volume 8.9 fL (8.0-11.0); Monocytes % 9.8; Neutrophils % 63.4; Platelet Count 288 x1000/uL (130-400); RBC 4.66 m/cumm (4.50-6.00); RBC Distribution Width 13.8 % (11.8-14.1); White Blood Cell Count 5.84 k/cumm (4.4-10.8)
[2020-01-21 10:44] LABS: ALT 41 U/L (16-63); AST 37 U/L (15-37); Albumin 3.7 g/dL (3.4-5.0); Alkaline Phosphatase 101 U/L (46-116); Anion Gap 9.8 mmol/L (3-11); BUN 7 mg/dL (7-18); Bilirubin, Total 0.3 mg/dL (0.2-1.0); CO2 28.2 mmol/L (21.0-32.0); CREATININE 0.77 mg/dL (0.70-1.30); Chloride 103 mmol/L (98-107); Glucose 99 mg/dL (74-106); Magnesium 1.8 mg/dL (1.8-2.4); Potassium 3.9 mmol/L (3.5-5.1); Sodium 141 mmol/L (136-145); Total Protein 7.4 g/dL (6.4-8.2)
== END 2020-02-01 23:59 | disposition home or self-care (01) ==
LOC: INF 02:34
PROVIDERS: Visit Provider Internal Medicine Hematology & Oncology
DX: C18.9 Malignant neoplasm of colon, unspecified (principal); C78.7 Secondary malignant neoplasm of liver and intrahepatic bile duct; Z45.2 Encounter for adjustment and management of vascular access device
CPT/HCPCS: 36591; 80053; 82378; 83735; 85025

== ENCOUNTER 2020-02-11 02:39 | Outpatient (RCR) | payer BC, SELFPAY ==
[2020-02-04] MEDS: Normal Saline Flush 10 ML SYR IVP (09:10)
[2020-02-04 09:47] LABS: Abs Immature Grans 0.01 k/cumm (0.0-0.09); Absolute Basophil Count 0.02 k/cumm (0.0-0.2); Absolute Eosinophil Count 0.09 k/cumm (0.0-0.7); Absolute Lymphocyte Count 1.42 k/cumm (1.2-3.4); Absolute Monocyte Count 0.81 k/cumm (0.11-0.7); Absolute Neutrophil Count 5.75 k/cumm (1.2-6.7); Basophils % 0.2; Eosinophils % 1.1; HGB 14.2 g/dL (13.5-17.5); Immature Grans % 0.1 %; Lymphocytes % 17.5; Mean Corp. HGB Concentration 33.8 g/dL (32.0-36.0); Mean Corpuscular Hemoglobin 31.1 pg (27.0-33.0); Mean Corpuscular Volume 91.9 fL (80-95); Mean Platelet Volume 8.4 fL (8.0-11.0); Neutrophils % 71.1; Platelet Count 501 x1000/uL (130-400); RBC 4.57 m/cumm (4.50-6.00); RBC Distribution Width 13.3 % (11.8-14.1)
[2020-02-04 10:02] LABS: ALT 29 U/L (16-63); AST 18 U/L (15-37); Albumin 3.5 g/dL (3.4-5.0); Alkaline Phosphatase 100 U/L (46-116); Anion Gap 8.4 mmol/L (3-11); BUN 9 mg/dL (7-18); Bilirubin, Total 0.3 mg/dL (0.2-1.0); CO2 27.6 mmol/L (21.0-32.0); CREATININE 0.83 mg/dL (0.70-1.30); Calcium 9.3 mg/dL (8.5-10.1); Chloride 102 mmol/L (98-107); Glucose 103 mg/dL (74-106); Magnesium 1.8 mg/dL (1.8-2.4); Potassium 3.8 mmol/L (3.5-5.1); Sodium 138 mmol/L (136-145); Total Protein 7.6 g/dL (6.4-8.2)
[2020-02-07 09:48] LABS: CEA 14.3 ng/mL (See Note)
[2020-02-11] MEDS: Normal Saline Flush 10 ML SYR IVP (08:43)
[2020-02-11] MEDS: Heparin 500 UNITS/5 ML SYRINGE IV (08:43)
[2020-02-11 08:45] LABS: Abs Immature Grans 0.01 k/cumm (0.0-0.09); Absolute Basophil Count 0.02 k/cumm (0.0-0.2); Absolute Eosinophil Count 0.09 k/cumm (0.0-0.7); Absolute Lymphocyte Count 1.12 k/cumm (1.2-3.4); Absolute Neutrophil Count 2.67 k/cumm (1.2-6.7); Basophils % 0.4; HCT 38.1 % (40.0-50.0); Immature Grans % 0.2 %; Lymphocytes % 24.3; Mean Corp. HGB Concentration 34.1 g/dL (32.0-36.0); Mean Corpuscular Hemoglobin 31.3 pg (27.0-33.0); Mean Corpuscular Volume 91.8 fL (80-95); Mean Platelet Volume 8.3 fL (8.0-11.0); Monocytes % 15.2; Neutrophils % 57.9; Platelet Count 391 x1000/uL (130-400); RBC 4.15 m/cumm (4.50-6.00); RBC Distribution Width 13.1 % (11.8-14.1); White Blood Cell Count 4.61 k/cumm (4.4-10.8)
[2020-02-11 09:00] LABS: ALT 37 U/L (16-63); AST 22 U/L (15-37); Albumin 2.9 g/dL (3.4-5.0); Alkaline Phosphatase 105 U/L (46-116); BUN 6 mg/dL (7-18); Bilirubin, Total 0.3 mg/dL (0.2-1.0); CREATININE 0.86 mg/dL (0.70-1.30); Calcium 9.2 mg/dL (8.5-10.1); Chloride 101 mmol/L (98-107); Glucose 90 mg/dL (74-106); Magnesium 1.9 mg/dL (1.8-2.4); Sodium 138 mmol/L (136-145); Total Protein 7.5 g/dL (6.4-8.2)
== END 2020-03-02 23:59 | disposition home or self-care (01) ==
LOC: INF 02:39
PROVIDERS: Internal Medicine Hematology & Oncology; Visit Provider Nurse Practitioner Adult Health
DX: C18.9 Malignant neoplasm of colon, unspecified (principal); C78.7 Secondary malignant neoplasm of liver and intrahepatic bile duct; Z45.2 Encounter for adjustment and management of vascular access device
CPT/HCPCS: 36591; 80053; 82378; 83735; 85025

== ENCOUNTER 2020-03-31 02:50 | Outpatient (RCR) | payer BC, SELFPAY ==
[2020-03-03] MEDS: Normal Saline Flush 10 ML SYR IVP (08:30)
[2020-03-03] MEDS: Heparin 500 UNITS/5 ML SYRINGE IV (08:35)
[2020-03-03 08:51] LABS: Abs Immature Grans 0.02 k/cumm (0.0-0.09); Absolute Basophil Count 0.01 k/cumm (0.0-0.2); Absolute Eosinophil Count 0.02 k/cumm (0.0-0.7); Absolute Lymphocyte Count 0.71 k/cumm (1.2-3.4); Absolute Monocyte Count 0.28 k/cumm (0.11-0.7); Absolute Neutrophil Count 2.55 k/cumm (1.2-6.7); Basophils % 0.3; Eosinophils % 0.6; HGB 11.6 g/dL (13.5-17.5); Immature Grans % 0.6 %; Lymphocytes % 19.8; Mean Corp. HGB Concentration 33.1 g/dL (32.0-36.0); Mean Corpuscular Hemoglobin 29.9 pg (27.0-33.0); Mean Corpuscular Volume 90.2 fL (80-95); Mean Platelet Volume 8.4 fL (8.0-11.0); Monocytes % 7.8; Neutrophils % 70.9; Platelet Count 388 x1000/uL (130-400); RBC 3.88 m/cumm (4.50-6.00); White Blood Cell Count 3.59 k/cumm (4.4-10.8)
[2020-03-03 08:56] LABS: ALT 153 U/L (16-63); AST 62 U/L (15-37); Albumin 2.6 g/dL (3.4-5.0); Alkaline Phosphatase 460 U/L (46-116); Anion Gap 7.8 mmol/L (3-11); BUN 7 mg/dL (7-18); Bilirubin, Total 0.5 mg/dL (0.2-1.0); CO2 29.2 mmol/L (21.0-32.0); CREATININE 0.85 mg/dL (0.70-1.30); Chloride 98 mmol/L (98-107); Glucose 147 mg/dL (74-106); Magnesium 1.9 mg/dL (1.8-2.4); Potassium 3.3 mmol/L (3.5-5.1); Sodium 135 mmol/L (136-145); Total Protein 7.2 g/dL (6.4-8.2)
[2020-03-06 09:49] LABS: CEA 31.5 ng/mL (See Note)
[2020-03-24] MEDS: Heparin 500 UNITS/5 ML SYRINGE IV (13:25)
[2020-03-24] MEDS: Normal Saline Flush 10 ML SYR IVP (13:25)
[2020-03-24 13:52] LABS: Abs Immature Grans 0.02 k/cumm (0.0-0.09); Absolute Eosinophil Count 0.01 k/cumm (0.0-0.7); Absolute Lymphocyte Count 0.53 k/cumm (1.2-3.4); Absolute Neutrophil Count 5.35 k/cumm (1.2-6.7); Eosinophils % 0.2; HCT 34.6 % (40.0-50.0); HGB 11.2 g/dL (13.5-17.5); Immature Grans % 0.3 %; Lymphocytes % 8.5; Mean Corp. HGB Concentration 32.4 g/dL (32.0-36.0); Mean Corpuscular Hemoglobin 29.6 pg (27.0-33.0); Mean Corpuscular Volume 91.3 fL (80-95); Mean Platelet Volume 8.1 fL (8.0-11.0); Monocytes % 4.8; Neutrophils % 86.2; Platelet Count 296 x1000/uL (130-400); RBC 3.79 m/cumm (4.50-6.00); RBC Distribution Width 15.4 % (11.8-14.1); White Blood Cell Count 6.21 k/cumm (4.4-10.8)
[2020-03-24 14:06] LABS: ALT 58 U/L (16-63); AST 37 U/L (15-37); Albumin 2.5 g/dL (3.4-5.0); Alkaline Phosphatase 214 U/L (46-116); Anion Gap 6.3 mmol/L (3-11); BUN 13 mg/dL (7-18); Bilirubin, Total 0.5 mg/dL (0.2-1.0); CO2 29.7 mmol/L (21.0-32.0); CREATININE 0.69 mg/dL (0.70-1.30); Calcium 8.8 mg/dL (8.5-10.1); Chloride 94 mmol/L (98-107); Glucose 136 mg/dL (74-106); Sodium 130 mmol/L (136-145); Total Protein 7.4 g/dL (6.4-8.2)
[2020-03-27 11:10] LABS: CEA 74.1 ng/mL (See Note)
[2020-03-31] MEDS: Normal Saline Flush 10 ML SYR IVP (14:29)
[2020-03-31] MEDS: Heparin 500 UNITS/5 ML SYRINGE IV (14:30)
[2020-03-31 14:36] LABS: Abs Immature Grans 0.02 k/cumm (0.0-0.09); Absolute Lymphocyte Count 0.49 k/cumm (1.2-3.4); Absolute Monocyte Count 0.12 k/cumm (0.11-0.7); Absolute Neutrophil Count 2.67 k/cumm (1.2-6.7); HCT 31.7 % (40.0-50.0); HGB 10.4 g/dL (13.5-17.5); Immature Grans % 0.6 %; Lymphocytes % 14.8; Mean Corp. HGB Concentration 32.8 g/dL (32.0-36.0); Mean Corpuscular Hemoglobin 30.1 pg (27.0-33.0); Mean Corpuscular Volume 91.6 fL (80-95); Mean Platelet Volume 7.9 fL (8.0-11.0); Monocytes % 3.6; Platelet Count 246 x1000/uL (130-400); RBC 3.46 m/cumm (4.50-6.00); RBC Distribution Width 14.9 % (11.8-14.1)
[2020-03-31 14:57] LABS: ALT 38 U/L (16-63); AST 26 U/L (15-37); Albumin 2.8 g/dL (3.4-5.0); Alkaline Phosphatase 136 U/L (46-116); Anion Gap 5.2 mmol/L (3-11); BUN 16 mg/dL (7-18); Bilirubin, Total 0.4 mg/dL (0.2-1.0); CO2 27.8 mmol/L (21.0-32.0); CREATININE 0.75 mg/dL (0.70-1.30); Calcium 9.1 mg/dL (8.5-10.1); Chloride 98 mmol/L (98-107); Glucose 123 mg/dL (74-106); Potassium 4.5 mmol/L (3.5-5.1); Sodium 131 mmol/L (136-145)
== END 2020-04-02 23:59 | disposition home or self-care (01) ==
LOC: INF 02:50
PROVIDERS: Visit Provider Internal Medicine Hematology & Oncology
DX: C18.9 Malignant neoplasm of colon, unspecified (principal); C78.7 Secondary malignant neoplasm of liver and intrahepatic bile duct; C77.1 Secondary and unspecified malignant neoplasm of intrathoracic lymph nodes; Z45.2 Encounter for adjustment and management of vascular access device
CPT/HCPCS: 36591; 80053; 82378; 83735; 85025

== ENCOUNTER 2020-04-14 05:22 | Outpatient (RCR) | payer BC, SELFPAY | END 2020-05-02 23:59 | disposition home or self-care (01) | LOC: INF 05:22 | PROVIDERS: Visit Provider Internal Medicine Hematology & Oncology | DX: R69 Illness, unspecified (principal) ==